=== PATIENT | male | born 1950 | race Caucasian/White ===

== ENCOUNTER 2018-09-18 08:56 | Outpatient (POV) | END 2018-09-18 17:00 | LOC: OUTPT 08:56 | PROVIDERS: ATTEND Otolaryngology | DX: H91.90 Unspecified hearing loss, unspecified ear (principal) | CPT/HCPCS: 92557; 92567 ==

== ENCOUNTER 2018-10-10 09:22 | Outpatient (CLI) ==
--- NOTE | 2018-10-10 11:44 | CT ---
EXAM: CT of the abdomen pelvis with and without contrast History: Lower abdominal pain. Technique: Multiplanar CT images through the abdomen pelvis were obtained with and without the admin istration of IV contrast Findings: Lung bases are clear. No acute osseous abnormalities. Ankylosing spondylitis with bamboo spine and partial osseous fusion of the sacroiliac joints.. No renal stones and no hydronephrosis. No ureteral calculi. Atherosclerotic vascular calcifications . No renal masses. No perinephric stranding. No gallstones identified by CT. Spleen is unremarkab le except for a few calcified granulomas. 1.2 cm benign cyst within the right hepatic lobe. Pancrea s is unremarkable. Adrenal glands are within normal limits. No bowel obstruction. No bladder wall thickening. Prostate is not significantly enlarged. No perirectal inflammation. Mild to moderate c olonic stool. No abdominal aortic aneurysm. No pathologically enlarged lymph nodes. No inflammator y stranding. The appendix is normal. Impression: 1. No acute intra-abdominal or pelvic process. 2. Benign hepatic cyst. 3. Mild to moderate colonic stool. 4. Ankylosing spondylitis
== END 2018-10-10 09:23 | disposition home or self-care (01) ==
LOC: RAD 09:22
PROVIDERS: ATTEND Internal Medicine
DX: R10.9 Unspecified abdominal pain (principal); I10 Essential (primary) hypertension; E78.5 Hyperlipidemia, unspecified
CPT/HCPCS: 36415; 80053; 80061; 82150; 83690; 84443; 85025